=== PATIENT | female | born 1960 | race African-American/Black ===

== ENCOUNTER 2017-10-16 04:30 | Observation (INO) | payer OTHER ==
[2017-10-16] VITALS (8 sets, daily range): BP systolic 108–145; BP diastolic 60–83; PULSE 67–96; RESP 16–22; TEMP 97.5–98.4; O2SAT 95–100
[~2017-10-16 04:30] MED LIST: PROP10TA6 PO
[2017-10-16] MEDS ORDERED: SODIUM CHLOR 0.9% 1000 ML INJ 1,000 ML IV SCH (04:46)
[2017-10-16] MEDS ORDERED: DEXTROSE 50% IN WATER 50 ML VIAL(D50) IV PUSH PRN (05:00)
[2017-10-16] MEDS ORDERED: GLUCAGON 1 MG/ML VIAL OTHER PRN (05:00)
[2017-10-16] MEDS ORDERED: SODIUM CHLORIDE 0.9% FLUSH 10 ML FLUSH IV FLUSH PRN (05:00)
--- NOTE | 2017-10-16 08:36 | MB ---
cc: Art Fritz MD DATE: 10/16/2017 HISTORY OF PRESENT ILLNESS: A 56-year-old right-handed woman with a history of hypertension, hypercholesterolemia, hypothyroidism, depression, history of migraines. She has about 5 a month. She does take a baby aspirin every day. She says she had a headache for 5 days in the front of her head and in the back of her head and then came in the hospital. Blood pressure was elevated. She says when she was in the hospital, she had trouble getting her words out. CAT scan was done which suggested a possible pontine abnormality. She usually takes Inderal for hypertension. She tells me now that she didn't have trouble speaking at home, but she had 5 days of headache and had trouble speaking when she came in the ER. Initial blood pressure 172/102. She still has a little bit of a headache in the right frontal head region. MEDICATIONS AT HOME; Inderal 10 mg q. 8 hours. She takes a baby aspirin a day at home. ALLERGIES: SHE IS ALLERGIC TO GRISEOFULVIN. REVIEW OF SYSTEMS: She denied any history of diabetes, [place], CABG, stent, angioplasty, A. Fib, Coumadin, renal, hepatic or pulmonary disease, lupus, ulcer, cancer, seizure, or stroke. SOCIAL HISTORY: She is not a smoker or a drinker. She lives by herself. FAMILY HISTORY: Positive for pancreatic cancer in her mother. Negative for seizure or stroke. PHYSICAL EXAMINATION: VITAL SIGNS: Initial blood pressure 172/102 now down to 108/74. NECK: There were no carotid bruits. HEART: Regular rhythm. I did not detect a murmur. ABDOMEN: She is moderately obese. NEUROLOGIC: Pupils are equal. Visual leblanc are full. Extraocular movements intact without nystagmus. Face symmetric with normal sensation. Tongue was midline. There is no drift. She had normal strength in the upper and lower extremities bilaterally. DTRs are trace throughout. Pinprick is intact throughout the face, arms, and legs bilaterally. Speech is fluent. She is not aphasic. She has a depressed affect. LABORATORY DATA: CBC is normal. Basic metabolic profile was essentially normal. Sodium was 147, glucose 111. Troponin was negative as was CPK, calcium, magnesium. Coags were normal. Chest x-ray: Mild cardiac silhouette and enlargement. CAT scan of the brain, hyperdensity on the right side of the stone. Review of those films shows a hyperdensity on the right side of the stone. It is unclear if it is an artifact or not, otherwise normal for age. ASSESSMENT: I thought overall she looked well neurologically. This is probably more of a hypertensive headache. Emergency room doctor notes she had normal speech in the emergency room. IMPRESSION: Probably just a hypertensive headache. She does have some history of migraines, some depression also. She said she was treated for depression, but it is not listed on her medication list. PLAN: We will hold her aspirin for now. Check an MRI of the brain and an MRA of the neck and [place]. Check some additional blood work on her and EKG. Overall, however, I thought she looked well neurologically. I note her temples, although she said were tender, she said they were minimally tender today. Sounds like she does have some history of migraines. She should run her blood pressure lower. She seems significantly depressed and states that she was treated. I noted telemetry has shown sinus rhythm overnight. If her MRI and MRAs are negative and the echo is negative, and her blood work looks good and her blood pressure is better, she could be discharged. Continue on the aspirin, possibly with an increase in her Inderal dose due to her hypertension. If she continues to have headaches, she could call the office for followup. We will also check a UA on her. Art Fritz MD DJWayne/MARYCARMEN , 08:10 AM , 08:35 AM
[2017-10-16] MEDS: INSULIN ASPART SUPPLEMENTAL SCALE SQ SCH ×4 (09:29→21:00)
[2017-10-16] MEDS: SODIUM CHLORIDE 0.9% FLUSH 10 ML FLUSH IV FLUSH SCH ×2 (09:30→21:00)
[2017-10-16] MEDS: SODIUM CHLOR 0.9% 1000 ML INJ 1,000 ML IV SCH ×2 (09:30→22:20)
[2017-10-16] MEDS ORDERED: GADODIAMIDE PF 287 MG/ML 20 ML VIAL (for RAD MRI) IVCONTRAST ONE (11:30)
--- NOTE | 2017-10-16 11:41 | RADRPT ---
EXAM DATE/TIME: 10/16/2017 10:20 [facility] COMPARISON: No previous studies available for comparison. INDICATIONS : Cephalgia. MEDICAL HISTORY : Hypertension. SURGICAL HISTORY : Cholecystectomy. Plastic surgeries. ENCOUNTER: Initial ACUITY: 1 day PAIN SCORE: 5/10 LOCATION: cranial Please note a normal MRA of the brain does not entirely exclude the possibility of a small aneurysm, nor the possibility of distal intracranial vessel disease. TECHNIQUE: 3D time of flight MRA was performed. Source images, multiplanar STS MIP, and 3D volume MIP reconstru ctions were reviewed. FINDINGS: Anterior circulation: Distal intracranial internal carotid arteries are patent with flow extending to the middle and anteri or cerebral arteries. There is no evidence for aneurysm, vessel truncation or stenosis, and no eviden ce for vascular malformation. Posterior circulation: Symmetric distal vertebral arteries with flow extending to basilar artery. There is no evidence for aneurysm, vessel truncation or stenosis, and no evidence for vascular malformation. CONCLUSION: 1. Unremarkable MRA examination of the [place]. Albert Lawrence MD on October 16, 2017 at 11:36 Board Certified Radiologist. This report was verified electronically.
--- NOTE | 2017-10-16 12:12 | RADRPT ---
EXAM DATE/TIME: 10/16/2017 10:20 [facility] COMPARISON: CT BRAIN W/O CONTRAST, October 16, 2017, 1:28. INDICATIONS : Cephalgia. CONTRAST: 20 cc Omniscan (gadodiamide) IV MEDICAL HISTORY : Hypertension. SURGICAL HISTORY : Cholecystectomy. Plastic surgeries. ENCOUNTER: Initial ACUITY: 1 day PAIN SCORE: 5/10 LOCATION: cranial TECHNIQUE: Multiplanar, multisequence MRI of the brain was performed both prior to and following the administrat ion of paramagnetic contrast. FINDINGS: CEREBRUM: The ventricles are normal for age. No evidence of midline shift, mass lesion, hemorrhage or acute in farction. No extraaxial fluid collections are seen. The pituitary gland and suprasellar cistern are normal in configuration. WHITE MATTER: No significant signal abnormalities are seen in the white matter. POSTERIOR FOSSA: The cerebellum and brainstem are intact. No signal abnormality seen in the right stone. The 4th vent ricle is midline. The cerebellopontine angle is unremarkable. The cerebellar tonsils are normal in p osition. DIFFUSION IMAGING: No focal areas of restricted diffusion are seen. No evidence of acute infarction. EXTRACRANIAL: The visualized portions of the orbits and paranasal sinuses are unremarkable. POST-CONTRAST: No abnormal areas of parenchymal or dural enhancement. No evidence of blood-brain barrier breakdown. CONCLUSION: 1. Negative MRI of the brain with and without contrast. 2. No focal signal abnormality seen in the right lateral stone. The finding seen on recent CT scan wa s probably artifactual. Rocky Huber MD on October 16, 2017 at 12:07 Board Certified Radiologist. This report was verified electronically.
--- NOTE | 2017-10-16 12:13 | RADRPT ---
EXAM DATE/TIME: 10/16/2017 10:20 [facility] COMPARISON: No previous studies available for comparison. INDICATIONS : Cephalgia. CONTRAST: 20 cc Omniscan (gadodiamide) IV MEDICAL HISTORY : Hypertension. SURGICAL HISTORY : Cholecystectomy. Plastic surgeries ENCOUNTER: Initial ACUITY: 1 day PAIN SCORE: 0/10 LOCATION: neck Percent stenosis is calculated using the diameter of the stenotic region over the diameter of the nor mal distal internal carotid artery. TECHNIQUE: Bolus infused MRA of the extracranial circulation was performed using a neurovascular coil. Post pro cessing was performed including rotating subvolume maximum intensity projections of each carotid kyler ry, rotating full volume maximum intensity projections of both carotid arteries, sagittal and coronal sliding thin slab reformations of each carotid artery, and left oblique sliding thin slab reformatio n through the aortic arch to include the origin of the arch branch vessels. FINDINGS: AORTIC ARCH: There is a three vessel origin of the great vessels from the aorta. No evidence of ostial narrowing. RIGHT CAROTID: The common carotid artery is intact. The carotid bulb has a normal configuration without ulceration or narrowing. The internal carotid artery lumen is smooth without stenosis. The external carotid ar karen is intact. LEFT CAROTID: The common carotid artery is intact. The carotid bulb has a normal configuration without ulceration or narrowing. The internal carotid artery lumen is smooth without stenosis. The external carotid ar karen is intact. VERTEBRALS: The vertebral arteries have a symmetric diameter. No stenotic lesions are seen. CONCLUSION: 1. Negative MRA of the carotids. Rocky Huber MD on October 16, 2017 at 12:10 Board Certified Radiologist. This report was verified electronically.
[2017-10-16 12:27] LABS: C-REACTIVE PROTEIN 1.25 MG/DL (0.00-0.30)
[2017-10-16 12:53] LABS: CHOLESTEROL/ HDL RATIO 2.48 RATIO; FREE T4 1.24 NG/DL (0.76-1.46); HDL CHOLESTEROL 58.8 MG/DL (40.0-60.0)
--- NOTE | 2017-10-16 13:58 | RADRPT ---
EXAM DATE/TIME: 10/16/2017 07:39 [facility] COMPARISON: MRA CAROTIDS W CONTRAST, October 16, 2017, 10:20. INDICATIONS : Dizziness. MEDICAL HISTORY : Hypertension. Sleep apnea. Asthma. SURGICAL HISTORY : Cholecystectomy. Tubal ligation. ENCOUNTER: Initial ACUITY: 1 week PAIN SCORE: 0/10 LOCATION: Bilateral neck PEAK SYSTOLIC VELOCITIES (cm/sec): ICA/CCA RATIO: Right: 0.7 Left: 1.0 ICA: Right: 53 Left: 87 CCA: Right: 81 Left: 90 ECA: Right: 76 Left: 81 VERTEBRAL: Right: 57 antegrade Left: 68 antegrade Elevated flow velocities and ICA/CCA ratios have been found to correlate with increased degrees of vessel stenosis, calculated as percentage of diameter relative to a normal segment of distal ICA/CCA FINDINGS: RIGHT CAROTID: No significant stenosis is visualized. Tortuosity of the internal carotid. The waveforms are within normal limits. LEFT CAROTID: No significant stenosis is visualized. Tortuosity of the internal carotid. The waveforms are within normal limits. VERTEBRAL ARTERIES: Antegrade flow is seen in both vertebral arteries. MISCELLANEOUS: None. CONCLUSION: 1. Tortuosity of the internal carotid vessels bilaterally. 2. Otherwise negative. Cervical vessels are patent with no significant atherosclerotic plaquing. Ante grade flow in both vertebrals. Jordan Orosco MD on October 16, 2017 at 13:40 Board Certified Radiologist. This report was verified electronically.
--- NOTE | 2017-10-16 16:06 | EKG ---
Date Performed: 10/16/2017 Time Performed: 09:11:14 PTAGE: 56 years EKG: Sinus rhythm NORMAL ECG PREVIOUS TRACING : 10/16/2017 09.10 No significant change from previous tracing noted. DOCTOR: Kade Bourgeois Interpretating Date/Time 10/16/2017 16:04:30
--- NOTE | 2017-10-16 17:01 | ECHRPT ---
Indication: CVA/TIA CONCLUSIONS The transthoracic study is normal by two-dimensional, color flow imaging and Doppler interrogation. BP: / HR: Rhythm: MEASUREMENTS (Male / Female) Normal Values Technical Quality: 2D ECHO LV Diastolic Diameter PLAX 4.3 cm 4.2 - 5.9 / 3.9 - 5.3 cm LV Systolic Diameter PLAX 3.1 cm IVS Diastolic Thickness 1.1 cm 0.6 - 1.0 / 0.6 - 0.9 cm LVPW Diastolic Thickness 0.7 cm 0.6 - 1.0 / 0.6 - 0.9 cm LV Relative Wall Thickness 0.4 LA Systolic Diameter LX 3.0 cm 3.0 - 4.0 / 2.7 - 3.8 cm DOPPLER Mitral E Point Velocity 65.4 cm/s Mitral A Point Velocity 83.1 cm/s Mitral E to A Ratio 0.8 TR Peak Velocity 219.0 cm/s TR Peak Gradient 19.2 mmHg FINDINGS LEFT VENTRICLE Normal left ventricular size. Wall thickness is normal. The left ventricular systolic function is normal with an estimated ejection fraction in the range of 55-60%. RIGHT VENTRICLE Normal right ventricular size and systolic function. LEFT ATRIUM The left atrial size is normal. RIGHT ATRIUM The right atrial size is normal. ATRIAL SEPTUM Normal atrial septal thickness without atrial level shunting by limited color doppler interrogation. AORTA The aortic root and proximal ascending aorta are normal in size on limited imaging. MITRAL VALVE Structurally normal mitral valve. No mitral valve stenosis or regurgitation. AORTIC VALVE Trileaflet aortic valve. No aortic valve stenosis or regurgitation. TRICUSPID VALVE Structurally normal tricuspid valve. No tricuspid valve stenosis or regurgitation. PULMONARY VALVE The pulmonary valve is not well visualized. VESSELS The inferior vena cava is normal in size. PERICARDIUM No pericardial effusion. Paulino Arora MD, FACC (Electronically Signed) Final Date:16 October 2017 17:00
--- NOTE | 2017-10-16 17:14 | HHI.HP ---
HPI Service [facility] Hospitalists Primary Care Physician No Primary Care Physician Admission Diagnosis Diagnoses: Chief Complaint: Headache Uncontrolled blood pressure Travel History International Travel<30 Days: No Contact w/Intl Traveler <30 Da: No Traveled to Known Affected Are: No History of Present Illness Written by Avis Rodriguez, acting as scribe for Dr. Terry on 10/16/17 at 16: 57. This is a 56yo female with a PMHX significant for hypertension, dyslipidemia, history of migraine headaches, depression and hypothyroidism who presents to [facility] ED with complaints of 5 day history of bifrontal headache. She also reports difficulty with speaking and recalling words. She denies any focal weakness, numbness or tingling. She denies any recent illness. She denies any fever chills. Denies any chest pain or shortness of breath. Denies any nausea, vomiting or abdominal pain. Denies any hematuria, dysuria diarrhea , hematochezia or melena. She reports being compliant with her blood pressure medication propanolol. In the ED, her BP was significantly elevated at 172/ 102. Patient was given clonidine 0.1 mg p.o with modest improvement in her blood pressure. CT head was obtained revealing 4 mm hyperdensity in the right side of the stone seen only on a single image. May represent artifact. However a small acute hemorrhage. Review of Systems Except as stated in HPI: all other systems reviewed are Neg Past Family Social History Past Medical History Hypertension Hyperlipidemia Hypothyroidism Depression Migraines Past Surgical History Cholecystectomy Abdominoplasty Breast lift Reported Medications Propranolol (Propranolol HCl) 10 Mg Tab 10 Mg PO Q8HR Allergies: Coded Allergies: griseofulvin (Verified Allergy, Severe, Rash, 10/16/17) Active Ordered Medications Current Medications Medications (Trade) Dose Ordered Sig/Isaias Route Start Time Stop Time Status Last Admin (NS Flush) 2 ml BID IV FLUSH 10/16/17 09:00 (NS Flush) 2 ml UNSCH PRN IV FLUSH 10/16/17 05:00 (NovoLOG SUPPLEMENTAL SCALE) 1 ACHS SQ 10/16/17 08:00 (D50w (Vial) Inj) 50 ml UNSCH PRN IV PUSH 10/16/17 05:00 (Glucagon Inj) 1 mg UNSCH PRN OTHER 10/16/17 05:00 Sodium Chloride 1,000 ml @ 75 mls/hr [id number] IV 10/16/17 09:00 10/16/17 09:30 Family History DM Cancer Social History Patient denies any tobacco use. She reports rare alcohol consumption. She denies any illicit drug use. Physical Exam Vital Signs Vital Signs Date Time Temp Pulse Resp B/P (MAP) Pulse Ox O2 Delivery O2 Flow Rate FiO2 10/16/17 16:05 98.4 80 18 130/83 (99) 99 10/16/17 15:50 88 10/16/17 12:10 98.2 77 18 145/82 (103) 100 10/16/17 09:01 97.5 71 22 111/72 (85) 99 10/16/17 07:30 108/74 (85) 10/16/17 05:28 78 10/16/17 05:28 98.1 67 16 137/79 (98) 100 Physical Exam GENERAL: This is a well-nourished, well-developed female patient, in no apparent distress. Awake and oriented. SKIN: No rashes, ecchymoses or lesions. Cool and dry. HEAD: Atraumatic. Normocephalic. No temporal or scalp tenderness. EYES: Pupils equal round and reactive. Extraocular motions intact. No scleral icterus. No injection or drainage. ENT: Nose without bleeding or purulent drainage. Throat without erythema, tonsillar hypertrophy or exudate. Uvula midline. Airway patent. NECK: Trachea midline. No lymphadenopathy. Supple, nontender, no meningeal signs. CARDIOVASCULAR: Regular rate and rhythm without murmurs, gallops, or rubs. RESPIRATORY: Clear to auscultation. Breath sounds equal bilaterally. No wheezes , rales, or rhonchi. GASTROINTESTINAL: Abdomen soft, non-tender, nondistended. No hepato-splenomegaly , or palpable masses. No guarding. MUSCULOSKELETAL: Extremities without clubbing, cyanosis, or edema. No joint tenderness, effusion, or edema noted. No calf tenderness. NEUROLOGICAL: Awake and alert. Cranial nerves II through XII grossly intact. Motor and sensory grossly within normal limits. Five out of 5 muscle strength in all muscle groups. Speech slow but appropriate responses. Laboratory Laboratory Tests Test 10/16/17 11:10 Erythrocyte Sedimentation Rate 45 C-Reactive Protein 1.25 Triglycerides Level 101 Cholesterol Level 146 LDL Cholesterol 67 HDL Cholesterol 58.8 Cholesterol/HDL Ratio 2.48 Vitamin B12 Level 567 Free Thyroxine 1.24 Thyroid Stimulating Hormone 3rd Gen 0.483 Imaging Last Impressions Neck Magnetic Resonance Angiography 10/16/17 0808 Signed Impressions: Service Date/Time: Monday, October 16, 2017 10:20 - CONCLUSION: 1. Negative MRA of the carotids. Rocky Huber MD Brain MRI 10/16/17 0808 Signed Impressions: Service Date/Time: Monday, October 16, 2017 10:20 - CONCLUSION: 1. Negative MRI of the brain with and without contrast. 2. No focal signal abnormality seen in the right lateral stone. The finding seen on recent CT scan was probably artifactual. Rocky Huber MD Head Magnetic Resonance Angiography 10/16/17 0000 Signed Impressions: Service Date/Time: Monday, October 16, 2017 10:20 - CONCLUSION: 1. Unremarkable MRA examination of the [place] of [place]. Albert Lawrence MD Carotid Artery Ultrasound 10/16/17 0000 Signed Impressions: Service Date/Time: Monday, October 16, 2017 07:39 - CONCLUSION: 1. Tortuosity of the internal carotid vessels bilaterally. 2. Otherwise negative. Cervical vessels are patent with no significant atherosclerotic plaquing. Antegrade flow in both vertebrals. MD Kristal Suhi VTE Risk Assessment Caprini VTE Risk Assessment: No/Low Risk (score <= 1) Caprini Risk Assessment Model Point Value = 1 Point Value = 2 Point Value = 3 Point Value = 5 Age 41-60 Minor surgery BMI > 25 kg/m2 Swollen legs Varicose veins or History of unexplained or recurrent spontaneous Oral contraceptives or hormone replacement Sepsis (< 1 month) Serious lung disease, including pneumonia (< 1 month) Abnormal pulmonary function Acute myocardial infarction Congestive heart failure (< 1 month) History of inflammatory bowel disease Medical patient at bed rest Age 61-74 Arthroscopic surgery Major open surgery (> 45 min) Laparoscopic surgery (> 45 min) Malignancy Confined to bed (> 72 hours) Immobilizing plaster cast Central venous access Age >= 75 History of VTE Family history of VTE Factor V Leiden Prothrombin [id number] Lupus anticoagulant Anticardiolipin antibodies Elevated serum homocysteine Heparin-induced thrombocytopenia Other congenital or acquired thrombophilia Stroke (< 1 month) Elective arthroplasty Hip, pelvis, or leg fracture Acute spinal cord injury (< 1 month) Prophylaxis Regimen Total Risk Factor Score Risk Level Prophylaxis Regimen 0-1 Low Early ambulation 2 Moderate Order ONE of the following: *Sequential Compression Device (SCD) *Heparin 5000 units SQ BID 3-4 Higher Order ONE of the following medications: *Heparin 5000 units SQ TID *Enoxaparin/Lovenox 40 mg SQ daily (WT < 150 kg, CrCl > 30 mL/min) *Enoxaparin/Lovenox 30 mg SQ daily (WT < 150 kg, CrCl > 10-29 mL/min) *Enoxaparin/Lovenox 30 mg SQ BID (WT < 150 kg, CrCl > 30 mL/min) AND/OR *Sequential Compression Device (SCD) 5 or more Highest Order ONE of the following medications: *Heparin 5000 units SQ TID (Preferred with Epidurals) *Enoxaparin/Lovenox 40 mg SQ daily (WT < 150 kg, CrCl > 30 mL/min) *Enoxaparin/Lovenox 30 mg SQ daily (WT < 150 kg, CrCl > 10-29 mL/min) *Enoxaparin/Lovenox 30 mg SQ BID (WT < 150 kg, CrCl > 30 mL/min) AND *Sequential Compression Device (SCD) Assessment and Plan Assessment and Plan //Possible CVA/TIA CT head with 4 mm hyperdensity in the right side of the stone seen only on a single image. May represent artifact. However a small acute hemorrhage. -Consult neurology, appreciate assistance -Continuous cardiac monitoring -Consult stroke navigator -Neuro checks -Obtain 2D echo -Obtain MRI/MRA of the brain and carotid ultrasound -Keep NPO until swallow evaluation completed -IVF -PT/ST eval/tx -obtain lipid profile, A1c and TSH level //Uncontrolled Hypertension -BP better after given clonidine -Allow permissive hypertension for now pending neurology recommendations -Continue to monitor BP //Headache //Hx of migraines -Suspect secondary to uncontrolled blood pressure //DVT prophylaxis -Avoid any chemoprophylaxis secondary concern for head bleed -Bilateral SCDs/REBEL carreon Discussed Condition With Patient, nursing staff This note was transcribed by diandra Rodriguez. I, Dr. Jonny Terry personally performed the history, physical exam, and medical decision making; and confirmed the accuracy of the information in the transcribed note. Authenticated by Dr. Jonny Terry on 10/19/17 at 15:03. Avis Rodriguez Oct 16, 2017 17:14 Jonny Terry MD Oct 19, 2017 15:03
[2017-10-16 17:33] LABS: HEMOGLOBIN A1C 5.3 % (4.3-6.0)
[2017-10-16 18:06] LABS: AMORPHOUS SEDIMENT, URINE RARE; BACTERIA, URINE RARE /hpf; BILIRUBIN, URINE NEG (NEG); BLOOD, URINE NEG (NEG); GLUCOSE,URINE NEG (NEG); KETONE, URINE NEG (NEG); NITRITE,URINE POS (NEG); SQUAMOUS EPITHELIAL CELL URINE 3 /hpf (0-5); URINE COLOR LIGHT-YELLOW (YELLW/STRAW); URINE LEUKOCYTE ESTERASE NEG (NEG)
[2017-10-16] MEDS: ACETAMINOPHEN 325 MG TAB PO PRN (21:22)
[2017-10-17] MEDS: ACETAMINOPHEN 325 MG TAB PO PRN (03:24)
[2017-10-17 04:07] VITALS: BP 103/57; PULSE 90; RESP 16; TEMP 97.7; O2SAT 99
[2017-10-17 08:00] VITALS: BP 110/58; PULSE 96; RESP 18; TEMP 97.7; O2SAT 98
[2017-10-17] MEDS: INSULIN ASPART SUPPLEMENTAL SCALE SQ SCH ×2 (08:00→12:00)
[2017-10-17 08:21] LABS: AUTOMATED NEUTROPHIL # 2.9 TH/MM3 (1.8-7.7); BASOPHIL % 0.5 % (0.0-2.0); EOSINOPHIL # 0.1 TH/MM3 (0-0.4); EOSINOPHIL % 1.6 % (0.0-4.0); HEMATOCRIT 35.3 % (35.0-46.0); HEMOGLOBIN 11.9 GM/DL (11.6-15.3); LYMPH % 43.3 % (9.0-44.0); LYMPHOCYTE # 2.6 TH/MM3 (1.0-4.8); MEAN CELL VOLUME 91.3 FL (80.0-100.0); MEAN CORPUSCULAR HEMOGLOBIN 30.6 PG (27.0-34.0); MEAN CORPUSCULAR HGB CONC 33.6 % (32.0-36.0); MEAN PLATELET VOLUME 7.6 FL (7.0-11.0); MONO % 5.8 % (0.0-8.0); MONOCYTE # 0.3 TH/MM3 (0-0.9); NEUT % 48.8 % (16.0-70.0); PLATELET COUNT 267 TH/MM3 (150-450); RED BLOOD COUNT 3.87 MIL/MM3 (4.00-5.30); RED CELL DISTRIBUTION WIDTH 13.3 % (11.6-17.2); WHITE BLOOD COUNT 5.9 TH/MM3 (4.0-11.0)
[2017-10-17 08:43] VITALS: PULSE 50
[2017-10-17 08:48] LABS: BICARBONATE 27.3 MEQ/L (21.0-32.0); CREATININE 0.81 MG/DL (0.50-1.00)
[2017-10-17 08:52] LABS: CHOLESTEROL/ HDL RATIO 2.43 RATIO; HDL CHOLESTEROL 62.1 MG/DL (40.0-60.0)
[2017-10-17] MEDS: SODIUM CHLORIDE 0.9% FLUSH 10 ML FLUSH IV FLUSH SCH (09:00)
--- NOTE | 2017-10-17 10:41 | HHI.PR ---
Subjective Remarks sr miranda gone Objective Vital Signs Date Time Temp Pulse Resp B/P (MAP) Pulse Ox O2 Delivery O2 Flow Rate FiO2 10/17/17 08:43 50 10/17/17 08:00 97.7 96 18 110/58 (75) 98 10/17/17 04:41 18 10/17/17 04:07 97.7 90 16 103/57 (72) 99 10/16/17 22:54 98.1 83 16 114/60 (78) 95 10/16/17 20:23 98.4 96 16 133/77 (95) 99 10/16/17 16:05 98.4 80 18 130/83 (99) 99 10/16/17 15:50 88 10/16/17 12:10 98.2 77 18 145/82 (103) 100 I/O 10/16/17 10/16/17 10/16/17 10/17/17 10/17/17 10/17/17 07:00 15:00 23:00 07:00 15:00 23:00 Intake Total 1200 ml Output Total 900 ml Balance 300 ml Intake Oral 200 ml IV Total 1000 ml Output Urine Total 900 ml Result Diagram: 10/17/17 0604 10/17/17 0604 Objective Remarks awake lert vff face sym nad moves all well Assessment and Plan Assessment and Plan imp mri/a/a nl ldl nl esr 48 but crp only 1.2 other labs ok r stone nl ok dc 325mg asa ok on dc Art Fritz MD Oct 17, 2017 10:41
[2017-10-17] MEDS ORDERED: ASPI325T33 PO (11:00)
--- NOTE | 2017-10-17 11:01 | HHI.DCPOC ---
Discharge Care Plan Diagnosis: (1) Headache Additional Problems Headache Goals to Promote Your Health * To prevent worsening of your condition and complications * To maintain your health at the optimal level Directions to Meet Your Goals Take your medications as prescribed Follow your dietary instruction Follow activity as directed Keep your appointments as scheduled Take your immunizations and boosters as scheduled If your symptoms worsen call your PCP, if no PCP go to Urgent Care Center or Emergency Room Smoking is Dangerous to Your Health. Avoid second hand smoke Call the 24-hour hour crisis hotline for domestic abuse at [place] Oct 17, 2017 11:01
--- NOTE | 2017-10-17 11:02 | HHI.PR ---
Subjective Remarks Follow-up visit headaches, HTN, HLD, migraine, hypothyroidism, depression. Patient seen and examined today. Reports she continues to have headaches but not as bad as when she had it yesterday. Denies any unilateral weakness. Notable speech is slow. Patient states that she has been having speech problem for years now that sometimes she could not find words. Discussed with patient results of labs and other diagnostic studies. Verbalized understanding. Patient is able to walk without difficulty ambulating towards the bathroom. Denies pain and discomfort. Denies SOB/ dyspnea. Denies chest pain, palpitations,dizziness. Denies fevers, chills, n/v/d. Denies dysuria. Objective Vitals Vital Signs Date Time Temp Pulse Resp B/P (MAP) Pulse Ox O2 Delivery O2 Flow Rate FiO2 10/17/17 08:43 50 10/17/17 08:00 97.7 96 18 110/58 (75) 98 10/17/17 04:41 18 10/17/17 04:07 97.7 90 16 103/57 (72) 99 10/16/17 22:54 98.1 83 16 114/60 (78) 95 10/16/17 20:23 98.4 96 16 133/77 (95) 99 10/16/17 16:05 98.4 80 18 130/83 (99) 99 10/16/17 15:50 88 10/16/17 12:10 98.2 77 18 145/82 (103) 100 I/O 10/16/17 10/16/17 10/16/17 10/17/17 10/17/17 10/17/17 07:00 15:00 23:00 07:00 15:00 23:00 Intake Total 1200 ml Output Total 900 ml Balance 300 ml Intake Oral 200 ml IV Total 1000 ml Output Urine Total 900 ml Result Diagram: 10/17/17 0604 10/17/17603 Imaging Last Impressions Neck Magnetic Resonance Angiography 10/16/17807 Signed Impressions: Service Date/Time: Monday, October 16, 2017 10:20 - CONCLUSION: 1. Negative MRA of the carotids. Rocky Huber MD Brain MRI 10/16/17807 Signed Impressions: Service Date/Time: Monday, October 16, 2017 10:20 - CONCLUSION: 1. Negative MRI of the brain with and without contrast. 2. No focal signal abnormality seen in the right lateral stone. The finding seen on recent CT scan was probably artifactual. Rocky Huber MD Head Magnetic Resonance Angiography 10/16/17 Signed Impressions: Service Date/Time: Monday, October 16, 2017 10:20 - CONCLUSION: 1. Unremarkable MRA examination of the [place]. Albert Lawrence MD Carotid Artery Ultrasound 10/16/17 Signed Impressions: Service Date/Time: Monday, October 16, 2017 07:39 - CONCLUSION: 1. Tortuosity of the internal carotid vessels bilaterally. 2. Otherwise negative. Cervical vessels are patent with no significant atherosclerotic plaquing. Antegrade flow in both vertebrals. Jordan Orosco MD Objective Remarks GENERAL: This is a well-nourished, well-developed patient, in no apparent distress. SKIN: Warm and dry. HEENT: Normocephalic. Pupils equal round and reactive. Nose without bleeding. Airway patent. NECK: Trachea midline. No JVD. Supple. CARDIOVASCULAR: Regular rate and rhythm without murmurs, gallops, or rubs. RESPIRATORY: Clear to auscultation. Breath sounds equal bilaterally. No wheezes , rales, or rhonchi. GASTROINTESTINAL: Abdomen soft, non-tender, nondistended. Bowel Sounds normoactive x4. MUSCULOSKELETAL: Extremities without clubbing, cyanosis, or edema. NEUROLOGICAL: Awake and alert. Oriented to place, person. Moves all extremities equally. Speech is slow, mild aphasia per A/P Assessment and Plan 56yo female with a PMHX significant for hypertension, dyslipidemia, history of migraine headaches, depression and hypothyroidism who presents to [facility] ED with complaints of 5 day history of bifrontal headache. Possible CVA/TIA CT head with 4 mm hyperdensity in the right side of the stone seen only on a single image. May represent artifact. However a small acute hemorrhage. -Consult neurology, appreciate assistance. Recommends okay to DC. Start ASA 325 mg. -Continuous cardiac monitoring, sinus rhythm -Consult stroke navigator -Neuro checks -2D echo showed 55-60% ejection fraction with normal LVEF -Negative MRI/MRA of the brain -carotid ultrasound showed tortuosity of the internal carotid vessels bilaterally. Otherwise negative. Cervical vessels are patent with no significant atherosclerotic plaquing. Antegrade flow in both vertebrals. -lipid profile, A1c and TSH level all within normal -We will recommend speech therapy for cognitive speech therapy as an outpatient. Follow-up with neurology and PCP Uncontrolled Hypertension -BP better after given clonidine -Allow permissive hypertension for now pending neurology recommendations -Continue to monitor BP -Continue propanolol Headache Hx of migraines -Suspect secondary to uncontrolled blood pressure DVT prophylaxis -Avoid any chemoprophylaxis secondary concern for head bleed -Bilateral SCDs/REBEL hose Discharge Planning Plan to DC home today. Follow-up with PCP and neurology. Rere Abad Oct 17, 2017 11:02
[2017-10-17 12:00] VITALS: BP 190/110; PULSE 96; RESP 18; TEMP 98.3; O2SAT 99
[2017-10-17] MEDS ORDERED: ASPIRIN EC 325 MG TABEC PO SCH (12:00)
--- NOTE | 2017-10-17 12:09 | HHI.DS ---
Discharge Summary Admission Date Oct 16, 2017 at 04:40 Discharge Date: Oct 17, 2017 Admitting Diagnosis Bifrontal headache (1) Headache ICD Code: R51 - Headache Procedures None Brief History - From Admission Written by Avis Rodriguez, acting as scribe for Dr. Terry on 10/16/17 at 16: 57. This is a 56yo female with a PMHX significant for hypertension, dyslipidemia, history of migraine headaches, depression and hypothyroidism who presents to [facility] ED with complaints of 5 day history of bifrontal headache. She also reports difficulty with speaking and recalling words. She denies any focal weakness, numbness or tingling. She denies any recent illness. She denies any fever chills. Denies any chest pain or shortness of breath. Denies any nausea, vomiting or abdominal pain. Denies any hematuria, dysuria diarrhea , hematochezia or melena. She reports being compliant with her blood pressure medication propanolol. In the ED, her BP was significantly elevated at 172/ 102. Patient was given clonidine 0.1 mg p.o with modest improvement in her blood pressure. CT head was obtained revealing 4 mm hyperdensity in the right side of the stone seen only on a single image. May represent artifact. However a small acute hemorrhage. CBC/BMP: 10/17/17 0604 10/17/17 0604 Significant Findings Laboratory Tests Test 10/16/17 11:10 10/16/17 17:09 10/17/17 06:04 Erythrocyte Sedimentation Rate 45 mm/hr (0-30) C-Reactive Protein 1.25 MG/DL (0.00-0.30) Urine Nitrite POS (NEG) Urine Bacteria RARE /hpf (NONE) Red Blood Count 3.87 MIL/MM3 (4.00-5.30) HDL Cholesterol 62.1 MG/DL (40.0-60.0) PE at Discharge GENERAL: This is a well-nourished, well-developed patient, in no apparent distress. SKIN: Warm and dry. HEENT: Normocephalic. Pupils equal round and reactive. Nose without bleeding. Airway patent. NECK: Trachea midline. No JVD. Supple. CARDIOVASCULAR: Regular rate and rhythm without murmurs, gallops, or rubs. RESPIRATORY: Clear to auscultation. Breath sounds equal bilaterally. No wheezes , rales, or rhonchi. GASTROINTESTINAL: Abdomen soft, non-tender, nondistended. Bowel Sounds normoactive x4. MUSCULOSKELETAL: Extremities without clubbing, cyanosis, or edema. NEUROLOGICAL: Awake and alert. Oriented to place, person. Moves all extremities equally. Speech is slow, mild aphasia per Pt update on day of discharge Follow-up visit headaches, HTN, HLD, migraine, hypothyroidism, depression. Patient seen and examined today. Reports she continues to have headaches but not as bad as when she had it yesterday. Denies any unilateral weakness. Notable speech is slow. Patient states that she has been having speech problem for years now that sometimes she could not find words. Discussed with patient results of labs and other diagnostic studies. Verbalized understanding. Patient is able to walk without difficulty ambulating towards the bathroom. Denies pain and discomfort. Denies SOB/ dyspnea. Denies chest pain, palpitations,dizziness. Denies fevers, chills, n/v/d. Denies dysuria. Hospital Course 56yo female with a PMHX significant for hypertension, dyslipidemia, history of migraine headaches, depression and hypothyroidism who presents to [facility] ED with complaints of 5 day history of bifrontal headache. Patient was worked up for possible CVA/TIA. CT of the head showed 4 mm hyperdensity in the right side of the stone seen only on single image. May represent artifact. However a small acute hemorrhage could also be a differential diagnosis particularly given the history of hypertension. MRI of the brain shows negative MRI of the brain with and without contrast. No focal signal abnormality seen in the right lateral stone. Neck MRA negative. Unremarkable head MRA examination of the [place]. Patient was seen by neurologist and recommends to start aspirin 325 mg daily. Labs were reviewed with the patient showed within normal limits. Clinically improved. Patient has met maximal benefits of hospitalization. Clinically stable for discharge. Pt Condition on Discharge: Stable Discharge Disposition: Discharge Home Discharge Time: <= 30 minutes Discharge Instructions DIET: Follow Instructions for: Heart Healthy Diet Speech Therapy-Diet Recommends: Other Activities you can perform: Regular-No Restrictions Activities to Avoid: Driving for 24 hrs Follow up Referrals: PCP Follow-up - 2-3 Days Speech Therapy - 1 Week Evaluate and Treat, cognitive therapy -speech delay? New Medications: Aspirin DR (Aspirin EC) 325 Mg Tabdr 325 MG PO DAILY for Blood Clot Prevention, #30 TAB Continued Medications: Propranolol (Propranolol) 10 Mg Tab 10 MG PO Q8HR, #90 TAB 0 Refills Rere Abad Oct 17, 2017 12:09
[2017-10-17 12:36] VITALS: BP 139/81; PULSE 95
[2017-10-17] MEDS ORDERED: PROPRANOLOL HCL 10 MG TAB PO SCH (14:00)
[2017-10-19 16:18] LABS: ANA SCREEN NEG (NEG)
== END 2017-10-17 17:14 | disposition home or self-care (01) ==
LOC: NEDDLT 04:30 → NEDA 04:40 → NEDH 09:14 → NEPFCDU 12:06
PROVIDERS: ADMIT Hospitalist; ATTEND Hospitalist
DX: I10 Essential (primary) hypertension (principal); G43.909 Migraine, unspecified, not intractable, without status migrainosus; E03.9 Hypothyroidism, unspecified; E78.5 Hyperlipidemia, unspecified; E78.00 Pure hypercholesterolemia, unspecified; F32.9 Major depressive disorder, single episode, unspecified; I77.1 Stricture of artery; J45.909 Unspecified asthma, uncomplicated; Z79.82 Long term (current) use of aspirin; Z79.899 Other long term (current) drug therapy; Z80.0 Family history of malignant neoplasm of digestive organs; Z83.3 Family history of diabetes mellitus
CPT/HCPCS: 70450; 70544; 70548; 70553; 71046; 80048; 80061; 81001; 82550; 82607; 82948; 83036; 83735; 84439; 84443; 84484; 85025; 85610; 85652; 85730; 86038; 86140; 86592; 92522; 93005; 93306; 93880; 97162; 97165; 99285; A9579; G0378; G8987; G8988; G8989; G8999; G9158; G9186; J7030